=== PATIENT | female | born 1975 | race Two or more races ===

== ENCOUNTER 2019-10-30 00:21 | Emergency (ER) | payer OTHER ==
[~2019-10-30] VITALS: Ht 152.4 cm; Wt 70.5 kg
[2019-10-30] MEDS ORDERED: LORazepam 2 mg/ml vial IM ONE (00:50)
[2019-10-30 02:34] VITALS: BP 130/87
== END 2019-10-30 02:36 | disposition home or self-care (01) ==
LOC: ER 00:22
DX: F41.9 Anxiety disorder, unspecified (principal); I10 Essential (primary) hypertension; Z86.69 Personal history of other diseases of the nervous system and sense organs
CPT/HCPCS: 82948; 93005; 96372; 99285; J2060; 99283